=== PATIENT | female | born 1955 | race Caucasian/White ===

== ENCOUNTER 2018-04-22 05:29 | Day surgery (SDC) | payer BC, OTHER ==
[~2018-04-22] VITALS: Ht 154.9 cm; Wt 83.0 kg
[2018-04-22] VITALS (8 sets, daily range): BP systolic 101–123; BP diastolic 53–67
--- NOTE | ~2018-04-22 | O ---
[facility] [place] [address] OPERATIVE REPORT Name: DANIE MATIAS Room #: 417-I [facility] M.R.#: [id number] Admission: 04/22/18 Attend Phys: Edgardo Brooks MD Discharge: Date of : 51 Report #: [id number] THIS REPORT FOR: //name// CC: MARTINA PLUMMER Physician staff Edgardo Brooks DATE OF SERVICE: 04/22/2018 PREOPERATIVE DIAGNOSES: 1. Right knee osteoarthritis. 2. Left knee osteoarthritis. POSTOPERATIVE DIAGNOSES: 1. Right knee osteoarthritis. 2. Left knee osteoarthritis. PROCEDURE: 1. Right total knee arthroplasty using NAVIO robotic scheduling assistant. 2. Injection left knee with 80 mg Depo-Medrol. SURGEON: Edgardo Brooks MD. ENTRY LEVEL CIVIL ENGINEER: Juliette John PA-C. INDICATIONS FOR ENTRY LEVEL CIVIL ENGINEER: Throughout the case extensive retraction and manipulation of the knee was required. This was afforded to me by my scheduling assistant. ANESTHESIA: LMA with an adductor canal block. IMPLANTS: [employer]hew size 6 Journey II BCS Oxinium femur, a size 4 tibia, size 11 highly constrained polyethylene and size 32 patella. TOURNIQUET TIME: 65 minutes. ESTIMATED BLOOD LOSS: 25 mL. COMPLICATIONS: None. SPECIMENS: None. CONDITION UPON LEAVING THE OPERATING ROOM: Stable. INDICATION FOR PROCEDURE: The patient is a 62-year-old female with severe right knee osteoarthritis and left knee osteoarthritis who failed conservative treatment for this and after discussion with her she elected for right total [facility] [place] [address] OPERATIVE REPORT Name: DANIE MATIAS Room #: 417-I [facility] M.R.#: [id number] Admission: 04/22/18 Attend Phys: Edgardo Brooks MD Discharge: Date of : 51 Report #: [id number] knee arthroplasty with cortisone injection in the left knee while under anesthesia. DESCRIPTION OF PROCEDURE: Risks, benefits, alternatives, complications were discussed in detail with the patient including but not limited to risk of anesthesia, risk of damage to nerves, arteries, blood vessels; risk for infection, bleeding, risk for continued knee pain and need for reoperation. Informed consent was obtained from the patient. Right knee was appropriately marked in the preoperative holding area. IV Ancef was given for preoperative antibiotic. Adductor canal block was placed by Anesthesia. She was brought to the operating room and placed in supine position on operating room table. LMA anesthesia was induced without complication. Tourniquet was placed on the right thigh. Right lower extremity was prepped and draped in normal sterile fashion. Timeout was performed properly identifying the patient and procedure as well as the instrumentation and implants. All in the operating room were in agreement. Right lower extremity was exsanguinated, tourniquet was inflated. Tourniquet time was 65 minutes. Standard midline approach to knee was made with 10 blade through the skin. Dissection was taken down sharply to the fascia, deep flaps were developed medially and laterally. Fresh 10 blade was used to make a medial parapatellar arthrotomy and the knee was inspected. There was severe tricompartmental osteoarthritis. It was decided to proceed with total knee arthroplasty. Reference pins were placed in the femur and the tibia and the knee was then digitally mapped using the Navegg robotic system. We sized a size 6 femur, a size 4 tibia with a size 10 spacer. After acceptance of the intraoperative plan, distal femoral cut was made with a NAVIO bur. The cutting block for the femur was then placed and the femoral cuts were made. Attention was turned to the tibia that was subluxed anteriorly and the tibial resection guide was pinned in place using the Navegg system for placement. The tibial resection was made. After this, flexion and extension gaps were checked and found to have good balance in flexion and extension. Tibia was sized, found to be a size 4 tibia. Size 4 tibial trial was placed, pinned and punched, size 6 femoral trial was placed and the box cut was made. This was then trialed with a size 10 and then a size 11 polyethylene. There was 2 mm of medial laxity throughout range of motion both visually and manually as opposed to 1 mm laterally. It was felt that we could make up for this with a highly constrained poly. A 9 mm was taken off the posterior surface of the patella and a size 32 patellar trial button was placed. Knee was taken through range of motion, found to have good patellar tracking. After this, trial components were removed. Bony ends were thoroughly irrigated with normal saline. Final size 4 tibia, size 6 Journey II BCS Oxinium femur and a size 32 patella were cemented in place using standard cementation techniques. While the cement cured, a periarticular injection consisting of morphine, ropivacaine, epinephrine and Toradol was placed around the knee joint capsule. After the cement cured, tourniquet was deflated. Hemostasis was obtained with Bovie cautery. A final size 11 highly constrained polyethylene was placed. A gram of vancomycin was placed deep in the joint. The fascia was closed with 0 Vicryl, skin was closed with 2-[address] [address] OPERATIVE REPORT Name: DANIE MATIAS Room #: 417-I [facility]..#: [id number] Admission: 04/22/18 Attend Phys: Edgardo Brooks MD Discharge: Date of : 51 Report #: [id number] Vicryl, 3-0 Monocryl. Dermabond and a PARISA dressing were applied. The patient tolerated this procedure well and went to recovery room under care of Anesthesia postoperatively. By: [id number] Edgardo Brooks MD /nt
[~2018-04-22 05:29] MED LIST: AZOPT OPHTH1 %/10 M1 OPHTHALMIC; DULERA 200 MCG/13 GM INH; DUREZOL5 ML OPHTHALMIC; FLUTICASONE PRO16 GM NASAL; IPRAT-ALBUT 0.5-3 ML INH; SIMVASTATIN10 MG PO; SINGULAIR 10 MG10 M1 PO; SPIRONOLACTONE25 M1 PO; SYNTHROID112 MC1 PO; TRAVATAN Z2.5 ML OPHTHALMIC; XOLAIR150 MG SUBQ
--- NOTE | 2018-04-22 19:09 | NUR ---
RECEIVED REPORT FROM PACU AT 18:22. PT ARRIVED IN STABLE CONDITION VIA CART TO ROOM AT 18:40. FAMILY AT BEDSIDE. ADMISSION EDUCATION COMPLETED. S/P RIGHT KNEE NAVIO TOTAL. RIGHT PARISA DRESSING INTACT, SMALL AMOUNT OF DRIED BLOOD NOTED. JENS HOSE AND SCD'S IN PLACE. ICE IN PLACE FOR COMFORT. NO SWELLING NOTED. NEURO CHECKS INTACT, PULSES 2+. WILL CONTINUE TO MONITOR AND GIVE REPORT TO CARE PROCESS MANAGER.
[2018-04-23] VITALS: BP 102/55
--- NOTE | 2018-04-23 02:15 | NUR ---
PT OBSERVED LYING ON THE BED WITH SPOUSE AT BEDSIDE AT START OF SHIFT.PT ON 2L/NC.DRSG ON HER R KNEE C/D/I.KNEE HIGH JENS HOSE AND SCD ON KWABENA LOWER EXT.ICE PROVIDED FOR POST OP SITE.IVF AND IV ABX INFUSING ORDERED.PT RSETING ON HER BED AT THIS TIME.CALL LIGHT WITHIN REACH.
[2018-04-23 04:52] VITALS: BP 93/45
[2018-04-23 05:08] LABS: HEMATOCRIT 36.2 % (37.0-47.0); MCH 30.3 pg (26.0-34.0); RBC 3.94 mil/uL (4.20-5.00); RDW 12.8 % (10.5-14.5); WBC 9.2 thou/uL (4.0-11.0)
[2018-04-23 07:52] VITALS: BP 94/54
--- NOTE | 2018-04-23 11:50 | NUR ---
ASSESSMENT-PT LIVES AT HOME WITH HER . SHE WAS INDEPENDENT OF ADLS AND AMBULATION PRIOR TO ADMISSION. [address]. PT IS IN NEED OF A YOUTH ROLLER WALKER. OFFERED OPTIONS AND SHE CHOSE [employer]. CONTACTED [facility] AND SHE ISSUED ROLLER WALKER TO PT. WILL TRANSPORT HOME AND ASSIST HER IN THE HOUSE UP THE STEPS. NO OTHER DC NEEDS IDENTIFIED.
[2018-04-23] MEDS ORDERED: TRI-BUFFERED A325 M1 PO (12:33)
[2018-04-23] MEDS ORDERED: NEURONTIN 300300 M1 PO (12:33)
[2018-04-23 14:08] VITALS: BP 94/54
--- NOTE | 2018-04-23 14:53 | NUR ---
ASSUMED PT CARE AT 1200. PT WAS RESTING COMFORTABLING IN CHAIR. PT IS WORKING WITH PT AND BEEN D/C. WILL CONTINUE TO MONITOR UNTIL D/C
--- NOTE | 2018-04-23 14:56 | NUR ---
ASSUMED PT CARE AT 0715. A&OX4, IV INTACT IN L FA, PARISA DRSG TO R KNEE C/D/I. SCHED/PRN PAIN MEDS GIVEN PRIOR TO PT THIS AM. PT TOLERATING PO WELL.
== END 2018-04-23 16:00 | disposition home or self-care (01) ==
LOC: OR 05:29 → TBA 05:29 → OR 06:27 → 4E 18:44 → ENTRNSPT 04-23 14:58 → EDTRNSPTSTS 04-23 15:13 → OR 04-23 16:00
PROVIDERS: Orthopaedic Surgery
DX: M17.0 Bilateral primary osteoarthritis of knee (principal); E78.5 Hyperlipidemia, unspecified; J45.909 Unspecified asthma, uncomplicated; E03.9 Hypothyroidism, unspecified; Z90.710 Acquired absence of both cervix and uterus; Z98.890 Other specified postprocedural states; Z88.8 Allergy status to other drugs, medicaments and biological substances; Z98.41 Cataract extraction status, right eye; Z98.42 Cataract extraction status, left eye; Z79.899 Other long term (current) drug therapy
CPT/HCPCS: 10783; 50010; 50101; 50415; 50954; 51130; 51225; 53000; 53078; 53368; 54118; 55372; 56527; 56528; 57095; 57103; 57109; 57110; 57113; 57127; 62110; 62900; 65060; 70005

== ENCOUNTER 2018-07-15 05:35 | Inpatient (IN) | payer BC, OTHER ==
[2018-07-06 12:38] LABS: URINE BILIRUBIN NEGATIVE (Negative); URINE BLOOD NEGATIVE (Negative); URINE CLARITY CLEAR; URINE COLOR YELLOW; URINE GLUCOSE-RANDOM* NEGATIVE (Negative); URINE KETONES NEGATIVE (Negative); URINE LEUKOCYTES-REFLEX NEGATIVE (Negative); URINE NITRITE-REFLEX NEGATIVE (Negative); URINE PROTEIN (DIPSTICK) NEGATIVE (Negative); URINE SPECIFIC GRAVITY 1.015 (1.005-1.035); URINE UROBILINOGEN 0.2 E.U./dl (0.2-1.0)
[2018-07-06 12:40] LABS: HEMATOCRIT 38.9 % (37.0-47.0); HEMOGLOBIN 13.4 gm/dL (12.0-15.0); MCH 30.9 pg (26.0-34.0); MCHC 34.4 g/dL (28.0-37.0); RBC 4.32 mil/uL (4.20-5.00); RDW 13.2 % (10.5-14.5); WBC 6.2 thou/uL (4.0-11.0)
[2018-07-06 12:47] LABS: CALCIUM 9.4 mg/dL (8.5-10.1); POTASSIUM 4.1 mmol/L (3.5-5.1)
[2018-07-06 12:52] LABS: PROTIME 10.3 Seconds (9.3-11.4)
[~2018-07-15] VITALS: Ht 154.9 cm; Wt 82.1 kg
[~2018-07-15 05:35] MED LIST changes: +EPIPEN0.3 MG/0.1 IM; +MINOCIN50 MG PO; +NEURONTIN 300300 M1 PO; +PROAIR HFA8.5 GM INH; +TRI-BUFFERED A325 M1 PO
[2018-07-15 11:09] VITALS: BP 137/79
[2018-07-15 19:24] VITALS: BP 117/59
[2018-07-16] VITALS (7 sets, daily range): BP systolic 84–131; BP diastolic 47–74
[2018-07-16 05:05] LABS: HEMATOCRIT 30.3 % (37.0-47.0); HEMOGLOBIN 10.2 gm/dL (12.0-15.0); MCHC 33.6 g/dL (28.0-37.0); MCV 92.1 fL (80.0-100.0); RBC 3.29 mil/uL (4.20-5.00); RDW 13.7 % (10.5-14.5); WBC 6.6 thou/uL (4.0-11.0)
[2018-07-16] MEDS ORDERED: NEURONTIN 300300 M1 PO (09:55)
[2018-07-16] MEDS ORDERED: TRI-BUFFERED A325 M1 PO (09:55)
[2018-07-17 04:58] LABS: HEMOGLOBIN 10.1 gm/dL (12.0-15.0); MCH 30.7 pg (26.0-34.0); MCHC 33.8 g/dL (28.0-37.0); MCV 90.8 fL (80.0-100.0); RBC 3.31 mil/uL (4.20-5.00); RDW 13.5 % (10.5-14.5); WBC 5.6 thou/uL (4.0-11.0)
[2018-07-17 05:04] VITALS: BP 106/49
[2018-07-17 07:25] VITALS: BP 121/57
[2018-07-17 11:46] VITALS: BP 121/57
--- NOTE | 2018-07-19 08:12 | O ---
[facility] [address] OPERATIVE REPORT Name: FLORENCIODANIE A Room #: 421-P [facility] M.R.#: [id number] Admission: 07/15/18 ������������������ Attend Phys: Edgardo Brooks MD Discharge: 07/17/18 ������������������ Date of : 51 Report #: [id number] THIS REPORT FOR: //name// CC: MARTINA PLUMMER Physician staff Edgardo Brooks DATE OF SERVICE: 07/15/2018 PREOPERATIVE DIAGNOSIS: Severe left knee osteoarthritis. POSTOPERATIVE DIAGNOSIS: Severe left knee osteoarthritis. PROCEDURE: Left total knee arthroplasty using a Navio robotic pharmacy sales assistant. SURGEON: Edgardo Brooks MD. REAL ESTATE OFFICE SUPERVISOR: Juliette John PA-C INDICATION FOR REAL ESTATE OFFICE SUPERVISOR: Throughout the case, extensive retraction and manipulation of the knee was required, supported by my pharmacy sales assistant. ANESTHESIA: LMA with an adductor canal block. IMPLANTS: [employer]hew size 6 Journey II BCS Oxinium femur, size 4 tibia, size 11 polyethylene and a size 32 patella. TOURNIQUET TIME: 65 minutes. ESTIMATED BLOOD LOSS: 25 mL. COMPLICATIONS: None. SPECIMENS: None. CONDITION UPON LEAVING THE OPERATING ROOM: Stable. INDICATIONS FOR PROCEDURE: The patient is a 62-year-old female with severe left knee osteoarthritis. She had failed conservative measures for this and after discussion with her, she elected for left total knee arthroplasty. DESCRIPTION OF PROCEDURE: Risks, benefits, alternatives, complications were discussed in detail with the patient including but not limited to risk of anesthesia, risk of damage to nerves, arteries, blood vessels, risk for infection, bleeding, risk for continued knee pain, need for reoperation. Informed consent was obtained from the patient. The left knee was appropriately [facility] [address] [place] [address] OPERATIVE REPORT Name: FLORENCIODANIE A Room #: 421-P [facility] M.R.#: [id number] Admission: 07/15/18 ������������������ Attend Phys: Edgardo Brooks MD Discharge: 07/17/18 ������������������ Date of : 51 Report #: [id number] marked in the preoperative holding area. IV Ancef was given for preoperative antibiotics. Adductor canal block was placed per Anesthesia and was brought to the operating room and placed in supine position on operating room table. LMA anesthesia was induced without complication. Tourniquet was placed on the left thigh. Left lower extremity was prepped and draped in normal sterile fashion. Timeout was performed properly identifying the patient and procedure as well as the instrumentation and implants. All in the operating room were in agreement. Left lower extremity was exsanguinated, tourniquet was inflated. Tourniquet time was 65 minutes. Standard midline approach to the knee was made with 10 blade through the skin. Dissection was taken down sharply to the fascia and deep flaps were developed medially and laterally. A 15 blade was used to make a medial parapatellar arthrotomy and the knee was inspected. There was severe tricompartmental osteoarthritis. ACL and PCL were removed sharply. Anterior horns of meniscus removed sharply. Reference pins were then placed in the femur and the tibia for the Navio assistance. The knee was then digitally mapped using the Navio robotic system. Intraoperative plan was made, and we sized size 6 femur, size 4 tibia, a size 11 polyethylene. After acceptance of the intraoperative plan, the distal femoral cut was made with a Navio bur. The 4-in-1 cutting block was then placed and the femoral cuts were made. Attention was then turned to the tibia. The remainder of the menisci removed with Bovie cautery. Tibial resection guide was pinned in place. The tibial resection block was pinned in place using the Navio system for placement. Tibial resection was made. After this, osteophytes were removed from the medial tibial plateau. Flexion and extension gaps were checked and found to have good balance in flexion and extension both medially and laterally. A size 4 tibial trial was placed and pinned and punched. A size 6 femoral trial was placed, and the box cut was made. This was then trialed with a size 11 polyethylene. Knee was taken through range of motion, found to be stable, found to have good balance in flexion and extension with 1 to 1.5 mm of laxity medially and laterally throughout range of motion. After this, 9 mm was taken off the posterior surface of the patella and a size 32 patellar trial was placed. Knee was taken through range of motion, found to be stable, found to have good patellar tracking. Trial components were removed. Bony ends were thoroughly irrigated with normal saline. A final size 6 femur, a size 4 tibia and a size 32 patella were cemented in place using standard cementation techniques. While the cement cured, a periarticular injection consisting of morphine, ropivacaine, epinephrine and Toradol was placed in the knee joint capsule. After the cement cured, the tourniquet was deflated. Hemostasis was obtained with Bovie cautery. Final size 11 polyethylene was placed. A gram of vancomycin was placed deep in the joint. Fascia was closed with 0 Vicryl, skin was closed with 2-0 Vicryl, 3-0 Monocryl. Dermabond and a PARISA dressing were applied. The patient [address] [address] OPERATIVE REPORT Name: DANIE MATIAS Room #: 421-P [facility] M.R.#: [id number] Admission: 07/15/18 ������������������ Attend Phys: Edgardo Brooks MD Discharge: 07/17/18 ������������������ Date of : 51 Report #: [id number] tolerated this procedure well and went to the recovery room under the care of Anesthesia postoperatively. ��������������������������������������������� <ELECTRONICALLY SIGNED> ���������������������������������������� By: Edgardo Brooks MD ��������������������������������������������� 07/19/18 0812 [id number] Edgardo Brooks MD /nt
== END 2018-07-17 12:33 | disposition home or self-care (01) | DRG 470 ==
LOC: PRE 05:35 → TBA 05:42 → PRE 10:55 → 4E 18:13 → ENTRNSPT 07-17 12:08 → EDTRNSPTSTS 07-17 12:11 → 4E 07-17 12:33
PROVIDERS: ADMIT Orthopaedic Surgery
PROC: 0SRD069 Replacement of Left Knee Joint with Oxidized Zirconium on Polyethylene Synthetic Substitute, Cemented, Open Approach (ICD-10-PCS; principal; 2018-07-15)
PROC: 8E0Y0CZ Robotic Assisted Procedure of Lower Extremity, Open Approach (ICD-10-PCS; principal; 2018-07-15)
DX: M17.12 Unilateral primary osteoarthritis, left knee (principal); Z79.82 Long term (current) use of aspirin; Z79.899 Other long term (current) drug therapy; Z88.1 Allergy status to other antibiotic agents
CPT/HCPCS: 10783; 50010; 50101; 50415; 50954; 51130; 51225; 51771; 53000; 53078; 54118; 55372; 56527; 56528; 57095; 57103; 57110; 57127; 62110; 62900; 64039; 70005